=== PATIENT | male | born 1985 | race Hispanic/Latino ===

== ENCOUNTER 2018-03-12 03:57 | Emergency (ER) | payer SELFPAY ==
[2018-03-12 05:35] LABS: ALT (SGPT) 147 U/L (8-55); AST (SGOT) 57 U/L (5-34); Albumin 4.1 g/dL (3.5-5.0); Alkaline Phosphatase 106 U/L (40-150); Anion Gap 10 mmol/L (10-20); BUN (Urea Nitrogen) 10 mg/dL (8.9-20.6); Bilirubin, Total 1.2 mg/dL (0.2-1.2); Calc. Creatinine Clearance 0 mL/min (70-130); Calcium 8.9 mg/dL (7.8-10.44); Carbon Dioxide 25 mmol/L (22-29); Chloride 105 mmol/L (98-107); Estimated GFR-MDRD Greater than 90; Globulin 2.8 g/dL (2.4-3.5); Glucose 96 mg/dL (70-105); Potassium 3.3 mmol/L (3.5-5.1); Protein, Total 6.9 g/dL (6.0-8.3); Sodium 137 mmol/L (136-145)
[2018-03-12 05:40] LABS: #Basophils 0.1 thou/uL (0.0-0.2); #Eosinphils 0.4 thou/uL (0.0-0.7); #Lymphocytes 2.7 thou/uL (1.20-3.40); #Monocytes 0.7 thou/uL (0.11-0.59); #Neutrophils 4.9 thou/uL (1.40-6.50); %Basophils 0.7 % (0.0-1.0); %Eosinophils 4.5 % (0.0-10.0); %Lymphocytes 31.1 % (21.0-51.0); %Neutrophils 55.8 % (42.0-75.0); Hemoglobin 15.7 g/dL (14.0-18.0); Mean Corpuscular HGB CONC 35.3 g/dL (32.0-36.0); Mean Corpuscular Volume 90.8 fl (80.0-94.0); Mean Platelet Volume 10.9 fL (7.4-10.4); PLT Morphology Comment Appears Decreased; Platelet Count 123 thou/uL (130-400); RBC Distribution Width 12.2 % (11.5-14.5); White Blood Cell (WBC) Count 8.7 thou/uL (4.8-10.8)
--- NOTE | 2018-03-12 08:20 | ULT ---
PRELIMINARY REPORT/[facility]/EMERGENCY AFTER HOURS PROCEDURE: EXAM: US Abdomen Limited, Right Upper Quadrant CLINICAL HISTORY: 33 years old, male; Pain; Other: Epigastric pain TECHNIQUE: Real-time ultrasound of the right upper quadrant with image documentation. COMPARISON: No relevant prior studies available. FINDINGS: No cholelithiasis. Gallbladder wall thickness upper limits of normal, about 3 mm. No definite pericholecystic fluid. The gallbladder is not abnormally distended at this time. No biliary dilation, common duct measures 3.4 mm. Somewhat increased echogenicity of the liver may indicate fatty infiltration. Some low-attenuation areas adjacent to the gallbladder, suspicious for areas of fatty sparing. Otherwise unremarkable liver, no other focal abnormality. Visible pancreas unremarkable. The pancreas is poorly visualized at this time. Images of the right kidney show no hydronephrosis. IMPRESSION: No cholelithiasis or biliary tree dilation. Gallbladder wall thickness upper normal. Possible fatty infiltration of the liver, see above. Thank you for allowing us to participate in the care of your patient. Dictated and Authenticated by: Rodolfo Bah MD 03/12/2018 7:13 AM Central Time ([place] & [place]) FINAL REPORT RIGHT UPPER QUADRANT ULTRASOUND: DATE: 03/12/18. COMPARISON: None. HISTORY: Epigastric pain. FINDINGS: I agree with the preliminary [facility] report dictated by Dr. Rodolfo Bah. Imaged pancreas is unremarkab le. Hepatic parenchyma is heterogeneous and echogenic, which may signify steatosis. No gallbladder wall thickening or pericholecystic fluid. No gallstones noted. Common duct measures 3-4 mm, within normal limits. The right kidney measures 11 cm craniocaudal dimension and demonstrates no stone, hydronephrosis, or mass. [employer] reports a negative Zimmerman's sign. IMPRESSION: No evidence for cholelithiasis or biliary dilatation. POS: [facility]
== END 2018-03-12 07:58 | disposition home or self-care (01) ==
LOC: ERS 03:57
DX: R10.13 Epigastric pain (principal)
CPT/HCPCS: 36415; 76705; 80053; 82274; 83690; 85025; 93005